=== PATIENT | female | born 2000 | race African-American/Black ===

== ENCOUNTER 2022-04-19 08:22 | Outpatient (CLI) | payer OTHER ==
[2022-04-19 16:45] LABS: SARS-CoV-2 PCR by NAA Not Detected (NotDetected)
== END 2022-04-19 08:23 | disposition home or self-care (01) ==
LOC: CSHLAB 08:22
PROVIDERS: ATTEND Advanced Practice Midwife
DX: Z20.822 Contact with and (suspected) exposure to COVID-19 (principal)
CPT/HCPCS: U0003; U0005